=== PATIENT | male | born 1985 | race Caucasian/White ===

== ENCOUNTER → 2018-06-24 | Outpatient (CLI) | payer OTHER ==
--- NOTE | 2018-06-24 12:48 | KCIC ---
Scrotal ultrasound 06/24/2018 INDICATION: Left testicular pain COMPARISON STUDY: None Discussion: Ultrasound evaluation of the scrotum was performed. Static images are submitted to PACS. Right testicle measures 4.6 x 2.4 x 4.3 cm. Left testicle measures 4.6 x 2.3 x 3.2 cm. Testes are homogeneous in appearance. No focal lesions are seen. Normal blood flow seen throughout the testicles. Bilateral varicoceles are noted left greater than right. Minimal hydrocele appears to be present on the right. IMPRESSION: Bilateral varicoceles left greater than right. Otherwise unremarkable scrotal ultrasound. Electronically signed by: Damir Sanders MD (06/24/2018 12:44 PM) [id number]
== END | disposition home or self-care (01) ==
LOC: KCIC US 10:26
PROVIDERS: ATTEND Family Medicine
DX: I86.1 Scrotal varices (principal)
CPT/HCPCS: 76870